=== PATIENT | female | born 1970 | race Caucasian/White ===

== ENCOUNTER → 2016-08-18 | Outpatient (REF) | payer BC ==
[~2016-08-18] MED LIST: ATIV1TAB10 PO; ESCI10TA2 PO
== END ==
LOC: M LAB REF 12:54 → M LABDRAW1 12:54
PROVIDERS: ATTEND Emergency Medicine
DX: N39.0 Urinary tract infection, site not specified (principal)

== ENCOUNTER → 2016-08-19 | Outpatient (CLI) | payer BC ==
[2016-08-19 08:43] LABS: BASO % 0.5 % (0.0-1.0); EOS # 0.2 K/mm3 (0.0-0.50); EOS % 3.4 % (0.0-3.0); LARGE UNSTAINED CELL # 0.1 K/mm3 (0.0-0.4); LARGE UNSTAINED CELL % 1.6 % (0.0-4.0); LYMPH # 1.4 K/mm3 (1.5-4.5); LYMPH % 26.9 % (24.0-44.0); MEAN CORPUSCULAR HEMOGLOBIN 30.7 pg (27.0-33.0); MEAN CORPUSCULAR HGB CONC 33.5 g/dl (32.0-36.5); MEAN CORPUSCULAR VOLUME 91.7 fl (80.0-96.0); MONO # 0.3 K/mm3 (0.0-0.8); MONO % 6.2 % (0.0-5.0); NEUTROPHILS # 2.9 K/mm3 (1.8-7.7); NEUTROPHILS % 61.4 % (36.0-66.0); PLATELET COUNT, AUTOMATED 171 k/mm3 (150-450); RED CELL DISTRIBUTION WIDTH 12.4 % (11.5-14.5); WHITE BLOOD COUNT 4.8 K/mm3 (4.0-10.0)
[2016-08-19 09:14] LABS: ALBUMIN 3.3 GM/DL (3.2-5.2); ALBUMIN/GLOBULIN RATIO 0.89 (1.00-1.93); ALKALINE PHOSPHATASE 69 U/L (45-117); ALT/SGPT 18 U/L (12-78); ANION GAP 8 MEQ/L (8-16); AST/SGOT 15 U/L (15-37); BILIRUBIN,TOTAL 0.5 MG/DL (0.2-1.0); BLOOD UREA NITROGEN 10 MG/DL (7-18); CALCIUM LEVEL 8.2 MG/DL (8.5-10.1); CARBON DIOXIDE LEVEL 29 MEQ/L (21-32); CHLORIDE LEVEL 107 MEQ/L (98-107); CHOLESTEROL LEVEL 148 MG/DL (<200); CREATININE FOR GFR 0.85 MG/DL (0.55-1.02); FREE T4 1.13 NG/DL (0.76-1.46); GLOMERULAR FILTRATION RATE > 60.0 (>58); GLUCOSE, FASTING 95 MG/DL (70-105); POTASSIUM SERUM 4.3 MEQ/L (3.5-5.1); SODIUM LEVEL 144 MEQ/L (136-145); TRIGLYCERIDES LEVEL 59 MG/DL (<150)
[2016-08-21 08:56] LABS: LUTEINIZING HORMONE 2.1 mIU/mL
[2016-08-21 08:57] LABS: FOLLICLE STIMULATING HORMONE 9.9 mIU/mL
== END ==
LOC: M LAB 07:47
PROVIDERS: ATTEND Emergency Medicine
DX: N91.2 Amenorrhea, unspecified (principal)

== ENCOUNTER 2016-08-20 00:58 | Emergency (ER) | payer BC ==
[~2016-08-20] VITALS: Ht 167.6 cm; Wt 52.6 kg
[2016-08-20 01:04] VITALS: BP 139/69
[2016-08-20] MEDS ORDERED: ESCI10TA2 PO (01:09)
[2016-08-20] MEDS ORDERED: LORazepam 2 MG/ML VIAL (J2060) IV STA (02:27)
[2016-08-20] MEDS ORDERED: NS 1,000 ML IV ONE (02:30)
[2016-08-20 03:14] LABS: BASO % 0.4 % (0.0-1.0); EOS # 0.1 K/mm3 (0.0-0.50); EOS % 1.3 % (0.0-3.0); LARGE UNSTAINED CELL # 0.1 K/mm3 (0.0-0.4); LARGE UNSTAINED CELL % 1.2 % (0.0-4.0); LYMPH # 1.2 K/mm3 (1.5-4.5); LYMPH % 15.3 % (24.0-44.0); MEAN CORPUSCULAR HEMOGLOBIN 30.9 pg (27.0-33.0); MEAN CORPUSCULAR HGB CONC 33.8 g/dl (32.0-36.5); MEAN CORPUSCULAR VOLUME 91.3 fl (80.0-96.0); MONO # 0.4 K/mm3 (0.0-0.8); MONO % 5.3 % (0.0-5.0); NEUTROPHILS # 5.4 K/mm3 (1.8-7.7); NEUTROPHILS % 76.6 % (36.0-66.0); PLATELET COUNT, AUTOMATED 163 k/mm3 (150-450); RED CELL DISTRIBUTION WIDTH 12.3 % (11.5-14.5); WHITE BLOOD COUNT 7.1 K/mm3 (4.0-10.0)
[2016-08-20 03:20] LABS: ANION GAP 9 MEQ/L (8-16); BLOOD UREA NITROGEN 12 MG/DL (7-18); CARBON DIOXIDE LEVEL 28 MEQ/L (21-32); CHLORIDE LEVEL 106 MEQ/L (98-107); CREATININE FOR GFR 0.84 MG/DL (0.55-1.02); GLOMERULAR FILTRATION RATE > 60.0 (>58); GLUCOSE, FASTING 115 MG/DL (70-105); POTASSIUM SERUM 3.7 MEQ/L (3.5-5.1); SODIUM LEVEL 143 MEQ/L (136-145)
[2016-08-20] MEDS ORDERED: ATIV1TAB10 PO (05:05)
== END 2016-08-20 05:25 | disposition home or self-care (01) ==
LOC: M ED 02:18
DX: T43.295A Adverse effect of other antidepressants, initial encounter (principal)
CPT/HCPCS: 36415; 80048; 85025; 93041; 96374; 99284; J2060

== ENCOUNTER → 2016-09-11 | Outpatient (CLI) | payer BC ==
--- NOTE | 2016-09-12 04:26 | REP ---
Clinical: Abnormal menstrual cycles . Technique: Transabdominal pelvic ultrasound followed by transvaginal examination for better evaluation of the endometrium and adnexa. Findings: Bladder is unremarkable and measures 7.6 x 5.1 x 4.7 cm . Normal anteverted uterus measures 9.2 x 4.1 x 5.0 cm . The endometrial complex measures 11.5 mm thickness. No discrete uterine or endometrial abnormalities are appreciated. Incidental note of subcentimeter Nabothian cysts. Bilateral ovaries are relatively normal in appearance. Right ovary measures 4.0 x 3.3 x 2.8 cm with 3.3 cm cyst. Left ovary measures 3.1 x 1.5 x 1.5 cm with multiple follicles up to 1.3 cm. No pelvic fluid or adnexal mass lesion . Impression: 1. normal uterus and left ovary. 3.3 cm right ovarian cyst may warrant reevaluation and 4-6 weeks to evaluate for resolution. Signed by Andres Degroot MD 09/12/2016 04:18 A
== END ==
LOC: M WHC 09:24
PROVIDERS: ATTEND Nurse Practitioner Women's Health
DX: N94.9 Unspecified condition associated with female genital organs and menstrual cycle (principal); N92.1 Excessive and frequent menstruation with irregular cycle

== ENCOUNTER → 2016-12-06 | Day surgery (SDC) | payer BC ==
[~2016-12-06] VITALS: Ht 168.9 cm; Wt 51.7 kg
[~2016-12-06] MED LIST changes: +BUPIVACAINE HCL 0.25% 30 ML VIAL As Ordered ONE; +ESMOLOL INJ 100MG/10ML VIAL As Ordered ONE; +GLYCOPYRROLATE INJ 0.2 MG/ML 2 ML VIAL As Ordered ONE; +KETOROLAC 30 MG/ML VIAL (J1885) IV SCH; +KETOROLAC 60 MG/2 ML VIAL (J1885) As Ordered ONE; +LIDOCAINE 2% INJ 100 MG/5 ML SDV (FOR ANES.) As Ordered ONE; +LR 1,000 ML IV ONE; +LR 1,000 ML IV SCH; +MIDAZOLAM INJ 2 MG/2 ML VIAL (J2250) As Ordered ONE; +NEOSTIGMINE 1MG/ML 5 ML SYRINGE (J2710) As Ordered ONE; +ONDANSETRON 4MG/2ML VIAL (J2405) As Ordered ONE; +ONDANSETRON 4MG/2ML VIAL (J2405) IV PRN; +PERCOCET 5MG/325MG TAB As Ordered ONE; +PERCOCET 5MG/325MG TAB PO PRN; +PROPOFOL 200 MG/20 ML VIAL As Ordered ONE; +ROCURONIUM BROMIDE 50 MG/5 ML VIAL/SYRINGE As Ordered ONE; +dexameTHASONE 4 MG/ML 1ML VIAL (J1100) As Ordered ONE; +ePHEDrine SULFATE 25 MG/5 ML(5MG/ML) SYRINGE As Ordered ONE; +fentaNYL 100 MCG/2 ML INJECTION (J3010) As Ordered ONE; +fentaNYL 100 MCG/2 ML INJECTION (J3010) IV PRN
[2016-12-06 11:51] LABS: MEAN CORPUSCULAR HEMOGLOBIN 31.7 pg (27.0-33.0); MEAN CORPUSCULAR HGB CONC 34.9 g/dl (32.0-36.5); MEAN CORPUSCULAR VOLUME 90.8 fl (80.0-96.0); RED CELL DISTRIBUTION WIDTH 12.7 % (11.5-14.5); WHITE BLOOD COUNT 5.3 K/mm3 (4.0-10.0)
[2016-12-06 12:34] LABS: CONTROL LINE HCG INT CTR LINE PRESENT
[2016-12-06] MEDS: PERCOCET 5MG/325MG TAB PO PRN ×2 (15:31→16:45)
--- NOTE | 2016-12-06 16:00 | RO ---
DATE OF OPERATION: 12/06/2016 PREPROCEDURE DIAGNOSIS: Right persistent ovarian cyst. POSTPROCEDURE DIAGNOSES: 1. Right ovarian persistent cyst. 2. Endometriosis. PROCEDURE: Laparoscopic right ovarian cystectomy with lysis of adhesions. SURGEON: Jacquie Henderson MD [employer]KER: Rolando Kent DO ANESTHESIA: General endotracheal anesthesia. ESTIMATED BLOOD LOSS: 5 mL. INTRAVENOUS FLUIDS: 1200 mL of Lactated Ringer's Solution. URINE OUTPUT: 400 mL. SPECIMENS: Cyst wall. OPERATIVE FINDINGS: Patient with approximately a 3 cm cystic ovarian cyst. Endometrial implants along the left uterosacral ligament and left adnexal region as well as posterior cul-de-sac. There was a thin band of omental adhesions along the previous appendectomy incision. DESCRIPTION OF OPERATION: After informed consent was obtained and written content was reviewed, the patient was brought to the operating room where general endotracheal anesthesia was obtained. She was then placed in the lithotomy position and was prepped and draped in a normal sterile fashion. Time-out in the operating room was then performed identifying the patient, procedure to be performed, as well as drug allergy. A bivalve speculum was then placed revealing the cervix. The anterior lip of the cervix was grasped with a single tooth tenaculum. A Hulka tenaculum was then advanced through the cervical os for means to manipulate the uterus. The single tooth tenaculum speculum was then removed. A Guzman catheter was placed and set to gravity. Gloves were changed and attention was turned to the patient's abdomen where a 0.25% Marcaine was infused in infraumbilical area. This area was excised and an 11 mm trocar and sleeve was advanced through this incision. Two additional ports were placed left and to the right umbilical, each one of these areas were infused with 0.25% Marcaine. Incision was made in each one of these areas and 5 mm trocars were advanced through each one of these incisions under direct visualization. The abdomen was then inspected with the above noted findings. The right fallopian tube and right adnexa were placed in traction. Intraoperative rupture of the ovarian cyst was then performed productive of serous fluid. Cyst wall was then dissected off the ovarian tissue and using harmonic scalpel was transected. Good hemostasis was noted. The specimen was then brought out through the incision. Next, using a Harmonic scalpel a lysis adhesion was performed along the pervious appendectomy incision releasing the omentum. Next, using a Wilfredo-Lauryn system the umbilical port site was closed using a 0 Vicryl. The pneumoperitoneum was then released. Instruments were removed as well trocars. Incisions were then closed with 4-0 Monocryl and dressed with Dermabond. The patient was awakened from general anesthesia and taken to the recovery in stable condition. Counts were correct. MTDD
[2016-12-06 17:10] VITALS: BP 104/55
== END | disposition home or self-care (01) ==
LOC: M SDC 11:22
PROVIDERS: ATTEND Obstetrics & Gynecology
DX: N83.201 Unspecified ovarian cyst, right side (principal); N73.6 Female pelvic peritoneal adhesions (postinfective); R01.1 Cardiac murmur, unspecified; Z79.899 Other long term (current) drug therapy
CPT/HCPCS: 58662; 84703; 85027; 86850; 86900; 86901; 88305; J1100; J1885; J2250; J2405; J2710; J3010

== ENCOUNTER → 2017-07-27 | Outpatient (REF) | payer BC | LOC: M SFHCWAGY 10:30 | DX: Z12.4 Encounter for screening for malignant neoplasm of cervix (principal) | CPT/HCPCS: G0123 ==

== ENCOUNTER → 2017-07-27 | Outpatient (CLI) | payer BC | LOC: M WHC 10:12 | DX: Z12.31 Encounter for screening mammogram for malignant neoplasm of breast (principal) ==

== ENCOUNTER → 2018-04-08 | Outpatient (CLI) | payer BC | LOC: M WHC 09:30 | DX: N88.8 Other specified noninflammatory disorders of cervix uteri (principal); R10.2 Pelvic and perineal pain; Z87.42 Personal history of other diseases of the female genital tract; N92.6 Irregular menstruation, unspecified | CPT/HCPCS: 76830 ==

== ENCOUNTER → 2018-07-29 | Outpatient (REF) | payer BC ==
[~2018-07-29] MED LIST changes: -BUPIVACAINE HCL 0.25% 30 ML VIAL As Ordered ONE; -ESMOLOL INJ 100MG/10ML VIAL As Ordered ONE; -GLYCOPYRROLATE INJ 0.2 MG/ML 2 ML VIAL As Ordered ONE; -KETOROLAC 30 MG/ML VIAL (J1885) IV SCH; -KETOROLAC 60 MG/2 ML VIAL (J1885) As Ordered ONE; -LIDOCAINE 2% INJ 100 MG/5 ML SDV (FOR ANES.) As Ordered ONE; -LR 1,000 ML IV ONE; -LR 1,000 ML IV SCH; -MIDAZOLAM INJ 2 MG/2 ML VIAL (J2250) As Ordered ONE; -NEOSTIGMINE 1MG/ML 5 ML SYRINGE (J2710) As Ordered ONE; -ONDANSETRON 4MG/2ML VIAL (J2405) As Ordered ONE; -ONDANSETRON 4MG/2ML VIAL (J2405) IV PRN; -PERCOCET 5MG/325MG TAB As Ordered ONE; -PERCOCET 5MG/325MG TAB PO PRN; -PROPOFOL 200 MG/20 ML VIAL As Ordered ONE; -ROCURONIUM BROMIDE 50 MG/5 ML VIAL/SYRINGE As Ordered ONE; -dexameTHASONE 4 MG/ML 1ML VIAL (J1100) As Ordered ONE; -ePHEDrine SULFATE 25 MG/5 ML(5MG/ML) SYRINGE As Ordered ONE; -fentaNYL 100 MCG/2 ML INJECTION (J3010) As Ordered ONE; -fentaNYL 100 MCG/2 ML INJECTION (J3010) IV PRN
[2018-07-31 14:14] LABS: HPV HYBRID CAPTURE II Negative (Negative)
== END ==
LOC: M SFHCWAGY 09:27
PROVIDERS: ATTEND Nurse Practitioner Women's Health
DX: Z12.4 Encounter for screening for malignant neoplasm of cervix (principal)
CPT/HCPCS: 87624; G0123

== ENCOUNTER → 2018-07-29 | Outpatient (CLI) | payer BC ==
--- NOTE | 2018-07-29 13:03 | REPMRS ---
Patient History The patient states she had a clinical breast exam in 08/06 No known family history of cancer. Benign excisional biopsy of the right breast. Digital Woman Screen Mammo: July 29, 2018 - Exam #: [id number] Bilateral CC and MLO view(s) were taken. Technologist: Dorene Shen, Technologist Prior study comparison: July 27, 2017, digital woman screen mammo performed at [facility]. May 04, 2016, digital woman screen mammo performed at [facility]. FINDINGS: The breast tissue is heterogeneously dense. This may lower the sensitivity of mammography. There has been no change in the appearance of the mammogram from the prior studies. There is a moderate amount of residual fibroglandular tissue which is fairly symmetric. There is no interval development of dominant mass, architectural distortion, or clustered microcalcification typical of malignancy. 3-D tomosynthesis shows no additional findings. No significant changes when compared with prior studies. Assessment: BI-RADS/ACR category 1 mammogram. Negative Mammogram. Recommendation Routine screening mammogram in 1 year (for women over age 40). This mammogram was interpreted with the aid of an FDA-approved computer-aided dectection system. A. Negative x-ray reports should not delay biopsy if a dominant or clinically suspicious mass is present. B. Four to eight percent of cancers are not identified by mammography. C. Adenosis and dense breast may obscure an underlying neoplasm. Electronically Signed By: Rashid Vail MD 07/29/18 1879
== END ==
LOC: M WHC 09:42
PROVIDERS: ATTEND Nurse Practitioner Women's Health
DX: Z12.31 Encounter for screening mammogram for malignant neoplasm of breast (principal)

== ENCOUNTER → 2019-07-08 | Outpatient (REF) | payer BC ==
[2019-07-08 21:41] LABS: APPEARANCE, URINE HAZY (CLEAR); BACTERIA, URINE AUTO NEGATIVE (NEGATIVE); BILIRUBIN, URINE AUTO NEGATIVE (NEGATIVE); BLOOD, URINE BLOOD 2+ (NEGATIVE); COLOR, URINE YELLOW (YELLOW); GLUCOSE, URINE (UA) AUTO NEGATIVE (NEGATIVE); KETONE, URINE AUTO NEGATIVE (NEGATIVE); LEUKOCYTE ESTERASE, URINE AUTO 2+ (NEGATIVE); MUCUS, URINE SMALL (NEGATIVE); NITRITE, URINE AUTO NEGATIVE (NEGATIVE); PROTEIN, URINE AUTO 1+ mg/dL (NEGATIVE); RBC, URINE AUTO 40 /HPF (0-3); SPECIFIC GRAVITY URINE AUTO 1.023 (1.002-1.035); SQUAMOUS EPITHELIAL CELL UR AU 1 /HPF (0-6); TRANSITIONAL EPITHELIAL AUTO 1 /HPF; UROBILINOGEN, URINE AUTO 0.2 mg/dL (0.0-2.0); WBC, URINE AUTO 45 /HPF (0-3)
== END ==
LOC: M LAB 21:22
PROVIDERS: ATTEND Physician Assistant
DX: N39.0 Urinary tract infection, site not specified (principal)

== ENCOUNTER → 2019-08-01 | Outpatient (CLI) | payer BC ==
--- NOTE | 2019-08-01 09:05 | REPMRS ---
Patient History The patient states she had a clinical breast exam in 07/2019. Patient had first child at age 33. No known family history of cancer. Benign excisional biopsy of the right breast. No Hormone Replacement Therapy Digital Woman Screen Mammo: August 01, 2019 - Exam #: [id number] Bilateral CC and MLO view(s) were taken. Technologist: Lauren Frausto, Technologist Prior study comparison: July 29, 2018, bilateral digital woman screen mammo performed at [facility]. July 27, 2017, digital woman screen mammo performed at [facility]. May 04, 2016, digital woman screen mammo performed at [facility]. FINDINGS: The breast tissue is heterogeneously dense. This may lower the sensitivity of mammography. There is a moderate amount of heterogeneously dense fibroglandular tissue which is fairly symmetric. There is no interval development of dominant mass, architectural distortion, or grouped microcalcification typical of malignancy. There has been no change in the appearance of the mammogram from the prior studies. 3-D tomosynthesis shows no additional findings. Assessment: BI-RADS/ACR category 1 mammogram. Negative Mammogram. Recommendation Routine screening mammogram of both breasts in 1 year (for women over age 40). This patient's Lifetime Breast Cancer RIsk is estimated at 12.9 %. This mammogram was interpreted with the aid of an FDA-approved computer-aided dectection system. Electronically Signed By: Cyrus Snyder MD 08/01/19 0904
== END ==
LOC: M WHC 08:07
PROVIDERS: ATTEND Nurse Practitioner Women's Health
DX: Z12.31 Encounter for screening mammogram for malignant neoplasm of breast (principal); Z86.018 Personal history of other benign neoplasm

== ENCOUNTER → 2019-08-01 | Outpatient (REF) | payer BC | LOC: M SFHCWAGY 13:07 | PROVIDERS: ATTEND Nurse Practitioner Women's Health | DX: Z12.4 Encounter for screening for malignant neoplasm of cervix (principal) ==

== ENCOUNTER → 2020-08-03 | Outpatient (CLI) | payer BC ==
[~2020-08-03] MED LIST changes: +ESCI10TA16 PO; -ESCI10TA2 PO
--- NOTE | 2020-08-03 09:14 | REPMRS ---
Patient History The patient states she had a clinical breast exam in 07/2020 No known family history of cancer. Benign excisional biopsy of the right breast. No Hormone Replacement Therapy Digital Woman Screen Mammo: August 03, 2020 - Exam #: [id number] Bilateral CC and MLO view(s) were taken. Technologist: Dorene Shen, Technologist Prior study comparison: August 01, 2019, bilateral digital woman screen mammo performed at [facility]. July 29, 2018, bilateral digital woman screen mammo performed at [facility]. July 27, 2017, digital woman screen mammo performed at [facility]. FINDINGS: The breast tissue is heterogeneously dense. This may lower the sensitivity of mammography. The Volpara volumetric breast density category is: C. There is a moderate amount of heterogeneously dense fibroglandular tissue which is fairly symmetric. There is no interval development of dominant mass, architectural distortion, or grouped microcalcification typical of malignancy. There has been no change in the appearance of the mammogram from the prior studies. 3-D tomosynthesis shows no additional findings. Assessment: BI-RADS/ACR category 1 mammogram. Negative Mammogram. Recommendation Routine screening mammogram of both breasts in 1 year (for women over age 40). This patient's [facility] Lifetime Breast Cancer RIsk is estimated at 12.7 %. This mammogram was interpreted with the aid of an FDA-approved computer-aided dectection system. Electronically Signed By: Cyrus Snyder MD 08/03/20 0914
== END ==
LOC: M WHC 08:12
PROVIDERS: ATTEND Nurse Practitioner Women's Health
DX: Z12.31 Encounter for screening mammogram for malignant neoplasm of breast (principal)

== ENCOUNTER → 2020-08-03 | Outpatient (REF) | payer BC | LOC: M SFHCWAGY 12:51 | PROVIDERS: ATTEND Nurse Practitioner Women's Health | DX: Z12.4 Encounter for screening for malignant neoplasm of cervix (principal) ==

== ENCOUNTER → 2021-08-03 | Outpatient (REF) | payer BC | LOC: M SFHCWAGY 12:55 | PROVIDERS: ATTEND Obstetrics & Gynecology | DX: R87.610 Atypical squamous cells of undetermined significance on cytologic smear of cervix (ASC-US) (principal); Z12.4 Encounter for screening for malignant neoplasm of cervix; N72 Inflammatory disease of cervix uteri | CPT/HCPCS: 87624; G0123 ==

== ENCOUNTER → 2021-08-03 | Outpatient (CLI) | payer BC | LOC: M WHC 10:41 | PROVIDERS: ATTEND Obstetrics & Gynecology | DX: Z12.31 Encounter for screening mammogram for malignant neoplasm of breast (principal) ==

== ENCOUNTER → 2021-10-27 | Outpatient (CLI) | payer BC ==
[2021-10-27 10:21] LABS: BASO % 0.8 % (0.0-1.0); EOS # 0.3 10^3/uL (0.0-0.5); EOS % 6.3 % (0.0-3.0); HEMATOCRIT 38.7 % (36.0-47.0); HEMOGLOBIN 12.6 g/dl (12.0-15.5); LYMPH # 1.6 10^3/uL (1.5-5.0); LYMPH % 34.6 % (24.0-44.0); MEAN CORPUSCULAR HEMOGLOBIN 29.6 pg (27.0-33.0); MEAN CORPUSCULAR HGB CONC 32.6 g/dl (32.0-36.5); MEAN CORPUSCULAR VOLUME 91.1 fl (80.0-96.0); MONO # 0.3 10^3/uL (0.0-0.8); NEUTROPHILS # 2.4 10^3/uL (1.5-8.5); NEUTROPHILS % 51.1 % (36.0-66.0); PLATELET COUNT, AUTOMATED 150 10^3/uL (150-450); RED BLOOD COUNT 4.25 10^6/uL (4.00-5.40); WHITE BLOOD COUNT 4.7 10^3/uL (4.0-10.0)
[2021-10-27 10:23] LABS: C REACTIVE PROTEIN QUANTITATIV < 0.30 MG/DL (0.00-0.30); RHEUMATOID FACTOR QUANT < 10.0 IU/ML (<15.0)
[2021-10-27 10:48] LABS: ERYTHROCYTE SEDIMENTATION RATE 10 mm/hr (0-20)
[2021-10-28 13:07] LABS: ANTINUCLEAR ANTIBODIES DIRECT Negative (Negative)
== END ==
LOC: M PLALAB 08:01
PROVIDERS: ATTEND Orthopaedic Surgery
DX: M75.42 Impingement syndrome of left shoulder (principal)

== ENCOUNTER → 2022-01-02 | Outpatient (CLI) | payer BC | LOC: M WHC 07:44 | PROVIDERS: ATTEND Obstetrics & Gynecology | DX: N95.0 Postmenopausal bleeding (principal); N88.8 Other specified noninflammatory disorders of cervix uteri ==

== ENCOUNTER → 2022-02-24 | Outpatient (REF) | payer BC | LOC: M SFHCWAGY 12:51 | PROVIDERS: ATTEND Obstetrics & Gynecology | DX: Z36.9 Encounter for antenatal screening, unspecified (principal); Z3A.01 Less than 8 weeks gestation of pregnancy ==

== ENCOUNTER → 2022-02-27 | Outpatient (CLI) | payer BC | LOC: M PLALAB 14:40 | PROVIDERS: ATTEND Obstetrics & Gynecology | DX: Z32.01 Encounter for pregnancy test, result positive (principal) ==

== ENCOUNTER → 2022-02-28 | Outpatient (CLI) | payer BC ==
[2022-02-28 17:03] LABS: LUTEINIZING HORMONE 42.2 mIU/mL
== END ==
LOC: M PLALAB 13:25
PROVIDERS: ATTEND Obstetrics & Gynecology
DX: Z32.01 Encounter for pregnancy test, result positive (principal)

== ENCOUNTER → 2022-07-18 | Outpatient (CLI) | payer BC | LOC: M WHC 07:35 | PROVIDERS: ATTEND Nurse Practitioner Family | DX: R10.2 Pelvic and perineal pain (principal) ==

== ENCOUNTER → 2022-08-07 | Outpatient (CLI) | payer BC | LOC: M WHC 07:28 | PROVIDERS: ATTEND Obstetrics & Gynecology | DX: Z12.31 Encounter for screening mammogram for malignant neoplasm of breast (principal) ==

== ENCOUNTER → 2022-08-07 | Outpatient (REF) | payer BC | LOC: M SFHCWAGY 13:04 | PROVIDERS: ATTEND Obstetrics & Gynecology | DX: Z12.4 Encounter for screening for malignant neoplasm of cervix (principal) | CPT/HCPCS: 87624; G0123 ==

== ENCOUNTER → 2022-09-18 | Outpatient (CLI) | payer BC | LOC: M WHC 12:02 | PROVIDERS: ATTEND Nurse Practitioner Family | DX: R10.2 Pelvic and perineal pain (principal) ==

== ENCOUNTER → 2022-12-15 | Outpatient (CLI) | payer BC | LOC: M PLAIMG 13:07 | PROVIDERS: ATTEND Registered Nurse | DX: M79.672 Pain in left foot (principal); M79.671 Pain in right foot ==

== ENCOUNTER → 2023-03-02 | Outpatient (CLI) | payer BC | LOC: M PLAIMG 06:46 | PROVIDERS: ATTEND Podiatrist | DX: M25.571 Pain in right ankle and joints of right foot (principal); M19.071 Primary osteoarthritis, right ankle and foot ==

== ENCOUNTER → 2023-06-05 | Outpatient (CLI) | payer BC | LOC: M WHC 12:18 | PROVIDERS: ATTEND Nurse Practitioner Family | DX: D25.9 Leiomyoma of uterus, unspecified (principal); R10.2 Pelvic and perineal pain; N95.0 Postmenopausal bleeding ==

== ENCOUNTER → 2023-08-09 | Outpatient (CLI) | payer BC | LOC: M WHC 09:14 | PROVIDERS: ATTEND Obstetrics & Gynecology | DX: Z12.31 Encounter for screening mammogram for malignant neoplasm of breast (principal) ==

== ENCOUNTER → 2023-08-20 | Outpatient (CLI) | payer BC | LOC: M WHC 12:46 | PROVIDERS: ATTEND Obstetrics & Gynecology | DX: R92.8 Other abnormal and inconclusive findings on diagnostic imaging of breast (principal) | CPT/HCPCS: 76642; 77065; G0279 ==

== ENCOUNTER → 2023-12-18 | Outpatient (CLI) | payer BC ==
[2023-12-18 10:10] LABS: BASO % 0.7 % (0.0-1.0); EOS # 0.3 10^3/uL (0.0-0.5); HEMOGLOBIN 13.2 g/dl (12.0-15.5); LYMPH # 1.5 10^3/uL (1.5-5.0); LYMPH % 33.6 % (24.0-44.0); MEAN CORPUSCULAR HEMOGLOBIN 29.7 pg (27.0-33.0); MEAN CORPUSCULAR VOLUME 89.9 fl (80.0-96.0); MONO # 0.4 10^3/uL (0.0-0.8); NEUTROPHILS # 2.1 10^3/uL (1.5-8.5); NEUTROPHILS % 49.5 % (36.0-66.0); PLATELET COUNT, AUTOMATED 173 10^3/uL (150-450); RED BLOOD COUNT 4.45 10^6/uL (4.00-5.40); WHITE BLOOD COUNT 4.3 10^3/uL (4.0-10.0)
[2023-12-18 10:18] LABS: ALBUMIN 3.5 G/DL (3.2-5.2); ALKALINE PHOSPHATASE 77 U/L (46-116); ALT/SGPT 23 U/L (7.0-40); AST/SGOT 23 U/L (<34); BILIRUBIN,TOTAL 0.6 MG/DL (0.3-1.2); BLOOD UREA NITROGEN 16 MG/DL (9-23); CALCIUM LEVEL 8.7 MG/DL (8.5-10.1); CARBON DIOXIDE LEVEL 30 MMOL/L (20-31); CHLORIDE LEVEL 106 MMOL/L (98-107); CHOLESTEROL LEVEL 184 MG/DL (<200); CHOLESTEROL RISK RATIO 3.06 (<5); CREATININE FOR GFR 0.91 MG/DL (0.55-1.30); GLOMERULAR FILTRATION RATE > 60.0 (>51); GLUCOSE, FASTING 99 MG/DL (60-100); POTASSIUM SERUM 3.9 MMOL/L (3.5-5.1); SODIUM LEVEL 139 MMOL/L (136-145); TOTAL PROTEIN 6.5 G/DL (5.7-8.2); TRIGLYCERIDES LEVEL 65 MG/DL (<150)
[2023-12-18 10:19] LABS: FREE T4 0.95 NG/DL (0.89-1.76); THYROID STIMULATING HORMONE 2.216 uIU/ML (0.55-4.78)
== END ==
LOC: M PLALAB 07:31
PROVIDERS: ATTEND Registered Nurse
DX: Z00.01 Encounter for general adult medical examination with abnormal findings (principal); F43.22 Adjustment disorder with anxiety

== ENCOUNTER → 2024-04-08 | Outpatient (CLI) | payer BC | LOC: M WHC 08:04 | PROVIDERS: ATTEND Obstetrics & Gynecology | DX: R92.8 Other abnormal and inconclusive findings on diagnostic imaging of breast (principal); R92.333 Mammographic heterogeneous density, bilateral breasts | CPT/HCPCS: 77065; G0279 ==

== ENCOUNTER → 2024-06-18 | Outpatient (CLI) | payer BC ==
[2024-06-18 10:56] LABS: BASO % 0.9 % (0.0-1.0); EOS # 0.3 10^3/uL (0.0-0.5); HEMATOCRIT 38.3 % (36.0-47.0); HEMOGLOBIN 12.9 g/dl (12.0-15.5); LYMPH # 1.4 10^3/uL (1.5-5.0); LYMPH % 31.9 % (24.0-44.0); MEAN CORPUSCULAR HEMOGLOBIN 29.9 pg (27.0-33.0); MEAN CORPUSCULAR HGB CONC 33.7 g/dl (32.0-36.5); MEAN CORPUSCULAR VOLUME 88.9 fl (80.0-96.0); MONO # 0.4 10^3/uL (0.0-0.8); MONO % 8.7 % (2.0-8.0); NEUTROPHILS # 2.2 10^3/uL (1.5-8.5); NEUTROPHILS % 51.3 % (36.0-66.0); PLATELET COUNT, AUTOMATED 169 10^3/uL (150-450); RED BLOOD COUNT 4.31 10^6/uL (4.00-5.40); WHITE BLOOD COUNT 4.3 10^3/uL (4.0-10.0)
[2024-06-18 11:16] LABS: FERRITIN 36.8 NG/ML (7.3-270.7); THYROID STIMULATING HORMONE 2.281 uIU/ML (0.55-4.78); TOTAL 25(OH) VITAMIN D 48.7 NG/ML (20.0-100.0)
[2024-06-18 11:17] LABS: ALBUMIN 3.3 G/DL (3.2-5.2); ALKALINE PHOSPHATASE 71 U/L (35-104); ALT/SGPT 19 U/L (7.0-40); AST/SGOT 21 U/L (<34); BILIRUBIN,TOTAL 0.4 MG/DL (0.3-1.2); BLOOD UREA NITROGEN 21 MG/DL (9-23); CALCIUM LEVEL 9.1 MG/DL (8.5-10.1); CARBON DIOXIDE LEVEL 29 MMOL/L (20-31); CHLORIDE LEVEL 109 MMOL/L (98-107); CHOLESTEROL LEVEL 175 MG/DL (<200); CREATININE FOR GFR 0.93 MG/DL (0.55-1.30); GLOMERULAR FILTRATION RATE > 60.0 (>51); GLUCOSE, FASTING 91 MG/DL (60-100); HDL CHOLESTEROL 62.5 MG/DL (>40); IRON (FE) 61 UG/DL (50-170); LDL CHOLESTEROL 100.7 MG/DL (<100); MAGNESIUM LEVEL 1.9 MG/DL (1.8-2.4); NON-HDL-C 112.5 MG/DL; PERCENT SATURATION 22.9 % (13.2-45.0); POTASSIUM SERUM 4.3 MMOL/L (3.5-5.1); SODIUM LEVEL 141 MMOL/L (136-145); TOTAL IRON BINDING CAPACITY 266 UG/DL (250-425); TOTAL PROTEIN 6.5 G/DL (5.7-8.2); TRIGLYCERIDES LEVEL 59 MG/DL (<150)
[2024-06-18 11:19] LABS: FREE T4 1.19 NG/DL (0.89-1.76)
== END ==
LOC: M PLALAB 07:39
PROVIDERS: ATTEND Nurse Practitioner Family
DX: R00.2 Palpitations (principal)

== ENCOUNTER → 2024-06-21 | Outpatient (CLI) | payer BC | LOC: M EKG 11:05 | PROVIDERS: ATTEND Nurse Practitioner Family | DX: R00.2 Palpitations (principal) ==

== ENCOUNTER → 2024-08-06 | Outpatient (CLI) | payer BC | LOC: M PLAIMG 13:41 | PROVIDERS: ATTEND Student in an Organized Health Care Education/Training Program | DX: M77.11 Lateral epicondylitis, right elbow (principal); S56.511D Strain of other extensor muscle, fascia and tendon at forearm level, right arm, subsequent encounter ==

== ENCOUNTER → 2024-09-18 | Outpatient (CLI) | payer BC | LOC: M RAD 08:10 | PROVIDERS: ATTEND Nurse Practitioner Family | DX: M79.675 Pain in left toe(s) (principal) ==

== ENCOUNTER → 2024-09-22 | Outpatient (CLI) | payer BC ==
[2024-09-22 17:25] LABS: BASO % 0.6 % (0.0-1.0); EOS # 0.2 10^3/uL (0.0-0.5); EOS % 3.8 % (0.0-3.0); HEMATOCRIT 39.8 % (36.0-47.0); HEMOGLOBIN 13.2 g/dl (12.0-15.5); LYMPH # 1.7 10^3/uL (1.5-5.0); LYMPH % 31.4 % (24.0-44.0); MEAN CORPUSCULAR HEMOGLOBIN 30.2 pg (27.0-33.0); MEAN CORPUSCULAR HGB CONC 33.2 g/dl (32.0-36.5); MEAN CORPUSCULAR VOLUME 91.1 fl (80.0-96.0); MONO # 0.5 10^3/uL (0.0-0.8); MONO % 8.9 % (2.0-8.0); NEUTROPHILS # 2.9 10^3/uL (1.5-8.5); NEUTROPHILS % 55.1 % (36.0-66.0); PLATELET COUNT, AUTOMATED 182 10^3/uL (150-450); RED BLOOD COUNT 4.37 10^6/uL (4.00-5.40); WHITE BLOOD COUNT 5.3 10^3/uL (4.0-10.0)
[2024-09-22 17:48] LABS: PERCENT SATURATION 17.3 % (13.2-45.0)
[2024-09-22 17:53] LABS: ALBUMIN 3.5 G/DL (3.2-5.2); BILIRUBIN,TOTAL 0.3 MG/DL (0.3-1.2); CALCIUM LEVEL 8.8 MG/DL (8.5-10.1); CREATININE FOR GFR 0.91 MG/DL (0.55-1.30); FERRITIN 34.6 NG/ML (7.3-270.7); FREE T4 1.21 NG/DL (0.89-1.76); GLOMERULAR FILTRATION RATE 75.9 (>51); MAGNESIUM LEVEL 1.9 MG/DL (1.8-2.4); POTASSIUM SERUM 3.8 MMOL/L (3.5-5.1); THYROID STIMULATING HORMONE 2.105 uIU/ML (0.55-4.78); TOTAL PROTEIN 6.8 G/DL (5.7-8.2)
== END ==
LOC: M PLALAB 14:55
PROVIDERS: ATTEND Nurse Practitioner Family
DX: R00.2 Palpitations (principal)

== ENCOUNTER → 2025-03-31 | Outpatient (CLI) | payer BC | LOC: M PLAIMG 12:01 | PROVIDERS: ATTEND Nurse Practitioner Family | DX: M25.561 Pain in right knee (principal) ==